=== PATIENT | female | born 1970 | race Caucasian/White ===

== ENCOUNTER 2020-12-11 21:05 | Inpatient (IN) | payer OTHER ==
[~2020-12-11] VITALS: Ht 170.2 cm; Wt 110.2 kg
[2020-12-11] MEDS ORDERED: ALBUTEROL SULF8.5 GM INH (21:11)
[2020-12-11] MEDS ORDERED: NORTRIPTYLINE H50 MG PO (21:11)
[2020-12-11] MEDS ORDERED: PERCOCET 10-321 EAC1 PO (21:12)
[2020-12-11] MEDS ORDERED: PROTONIX40 MG PO (21:12)
[2020-12-11] MEDS ORDERED: ALDACTONE100 MG PO (21:12)
[2020-12-11] MEDS ORDERED: ZOCOR40 MG PO (21:12)
[2020-12-11] MEDS ORDERED: IMITREX100 MG PO (21:13)
[2020-12-11] MEDS ORDERED: TOPAMAX50 MG PO (21:13)
[2020-12-11] MEDS ORDERED: FLUCONAZOLE150 MG PO (21:14)
[2020-12-11] MEDS ORDERED: NEURONTIN600 MG PO (21:14)
[2020-12-11] MEDS ORDERED: GLUCOPHAGE1000 MG PO (21:15)
[2020-12-11] MEDS ORDERED: XOPENEX 0.0.63 MG/3 UPD (21:15)
[2020-12-11] MEDS ORDERED: METHOCARBAMOL500 MG PO (21:15)
[2020-12-11] MEDS ORDERED: SYNTHROID125 MCG PO (21:15)
[2020-12-11] MEDS ORDERED: CELEBREX 100 M100 MG PO (21:16)
[2020-12-11] MEDS ORDERED: MS CONTIN30 MG PO (21:16)
[2020-12-11] MEDS ORDERED: DICLOFENAC SODI50 MG PO (21:17)
[2020-12-11] MEDS ORDERED: SOLIQUA (21:17)
[2020-12-11] MEDS ORDERED: CYMBALTA60 MG PO (21:17)
[2020-12-11] MEDS ORDERED: HYDROCHLOROTH12.5 M1 PO (21:18)
[2020-12-11 22:09] LABS: BASOPHILS 0.5 % (0-2); EOSINOPHILS 3.8 % (0-7); HEMATOCRIT 35.8 % (36.0-48.0); HEMOGLOBIN 11.5 g/dL (12-16); IMMATURE GRANULOCYTES 0.3 % (0-5); LYMPHOCYTE ABS# 1.69 10x3/uL (1.18-3.74); LYMPHOCYTES 15.1 % (15-50); MCH 30.6 pg (26.0-34.0); MCHC 32.1 g/dL (31.0-37.0); MCV 95.2 fL (80.0-100.0); MEAN PLATELET VOLUME 10.8 fL (7.4-10.4); MONOCYTES 11.2 % (2-11); NEUTROPHIL ABS# 7.73 10x3/uL (1.56-6.13); NEUTROPHILS 69.1 % (40-80); PLATELET COUNT 294 10x3/uL (130-400); RBC 3.76 10x6/uL (4.00-5.40); RDW 14.9 % (11.5-14.5); WBC 11.2 10x3/uL (4.8-10.8)
[2020-12-11 22:17] LABS: CALC OSMOLALITY 278 mosm/kg (275-300); CALCIUM 9.6 mg/dL (8.5-10.1); CARBON DIOXIDE 24.9 mmol/L (21.0-32.0); CHLORIDE - SERUM 93 mmol/L (98-107); CREATININE - SERUM 3.5 mg/dL (0.6-1.3); GLUCOSE 155 mg/dL (74-106); POTASSIUM - SERUM 3.4 mmol/L (3.5-5.1); SODIUM 133 mmol/L (136-145); UREA NITROGEN 41 mg/dL (7-18); eGFR NON AFRICAN AMERICAN 15 mL/min (90-120)
[2020-12-11 22:33] LABS: ALBUMIN 3.6 g/dL (3.4-5.0); ALKALINE PHOSPHATASE 128 U/L (30-120); ALT (SGPT) 56 U/L (10-68); BILIRUBIN - TOTAL 0.52 mg/dL (0.2-1.3); CKMB 6.1 U/L (0.0-3.6); CREATINE KINASE 239 UL (21-215); PRO BNP 217 pg/mL (0-125); PROTEIN - SERUM 7.9 g/dL (6.4-8.2); TROPONIN-I < 0.017 ng/mL (0.000-0.060)
[2020-12-12 00:05] LABS: BILIRUBIN NEGATIVE (NEGATIVE); KETONE NEGATIVE (NEGATIVE); NITRITE NEGATIVE (NEGATIVE); UROBILINOGEN NORMAL mg/dL (< 2)
[2020-12-12 00:06] VITALS: BP 110/75
[2020-12-12 00:06] LABS: BACTERIA MODERATE HPF (NONE SEEN); SQUAMOUS EPITHELIAL 0-5 HPF (0-4); WHITE CELLS - URINE 0-5 HPF (0-4)
[2020-12-12 00:11] LABS: UDS - AMPHET NEGATIVE QUAL (NEGATIVE); UDS - BARB NEGATIVE QUAL (NEGATIVE); UDS - BENZO NEGATIVE QUAL (NEGATIVE); UDS - COCAINE NEGATIVE QUAL (NEGATIVE); UDS - OPIATE POSITIVE QUAL (NEGATIVE); UDS - PCP NEGATIVE QUAL (NEGATIVE); UDS - THC NEGATIVE QUAL (NEGATIVE)
--- NOTE | 2020-12-12 01:45 | NUR ---
PT ARRIVED TO UNIT AT 0030 FROM ER. ALERT/ORIENTED/AMBULATORY. IVF INFUSING. IV ZOSYN COMPLETING. ACCOMPANIED BY HER . ADMISSION HISTORY/ASSESSMENT AND HOME MEDS REVIEWED. PROVIDED SANDWICH TRAY. PT DID TAKE HOME MEDS FOR TONIGHT,MINUS GLUCOPHAGE. ORIENT TO UNIT, USE OF CALL LIGHT AND SAFETY.
[2020-12-12 03:13] VITALS: BP 113/75; BMI 38.1
[2020-12-12 05:25] VITALS: BP 126/72
[2020-12-12 06:45] LABS: CKMB 4.9 U/L (0.0-3.6); CREATINE KINASE 207 UL (21-215)
[2020-12-12 06:55] LABS: TROPONIN-I < 0.017 ng/mL (0.000-0.060)
[2020-12-12 07:44] VITALS: BP 108/53
[2020-12-12 07:51] LABS: BASOPHILS 0.4 % (0-2); EOSINOPHILS 5.3 % (0-7); HEMATOCRIT 32.5 % (36.0-48.0); HEMOGLOBIN 10.6 g/dL (12-16); IMMATURE GRANULOCYTES 0.3 % (0-5); LYMPHOCYTE ABS# 1.22 10x3/uL (1.18-3.74); LYMPHOCYTES 16.9 % (15-50); MCH 30.5 pg (26.0-34.0); MCHC 32.6 g/dL (31.0-37.0); MCV 93.4 fL (80.0-100.0); MEAN PLATELET VOLUME 10.6 fL (7.4-10.4); MONOCYTES 12.5 % (2-11); NEUTROPHIL ABS# 4.66 10x3/uL (1.56-6.13); NEUTROPHILS 64.6 % (40-80); PLATELET COUNT 248 10x3/uL (130-400); RBC 3.48 10x6/uL (4.00-5.40); RDW 14.7 % (11.5-14.5)
[2020-12-12 07:54] LABS: WBC 7.2 10x3/uL (4.8-10.8)
[2020-12-12 07:57] LABS: ANION GAP 16.9 mmol/L (8-16); CALCIUM 9.3 mg/dL (8.5-10.1); CARBON DIOXIDE 24.7 mmol/L (21.0-32.0); MAGNESIUM - SERUM 1.6 mg/dL (1.8-2.4); POTASSIUM - SERUM 3.6 mmol/L (3.5-5.1); THYROID STIMULATING HORMONE 7.02 uIU/mL (0.36-3.74)
[2020-12-12 07:59] LABS: CREATININE - SERUM 2.6 mg/dL (0.6-1.3)
[2020-12-12 08:14] LABS: % SATURATION 18 % (15-55); IRON 61 ug/dl (35-150); TOTAL IRON BIND CAPACITY 333 ug/dl (260-445); UNSAT IRON BIND CAPACITY 272 ug/dl (150-375)
--- NOTE | 2020-12-12 08:36 | NUR ---
PT LYING IN BED ASLEEP. WOKE PT UP, GAVE MORNING MEDS. RESPIRATIONS EVEN NONLABORED, PAIN 3 ON THE NUMERIC PAIN SCALE. ALL NEEDS MET. CALL LIGHT IN REACH.
--- NOTE | 2020-12-12 10:55 | NUR ---
PT AND REVIEWED [facility]REC AT THIS TIME, AND ASKS FOR HOME MEDICATIONS TO BE RESTARTED. WILL PAGE MD FOR FURTHER ORDERS.
[2020-12-12 11:14] LABS: CKMB 3.4 U/L (0.0-3.6); CREATINE KINASE 206 UL (21-215); TROPONIN-I < 0.017 ng/mL (0.000-0.060)
[2020-12-12 13:23] VITALS: Ht 170.2 cm; Wt 110.2 kg
[2020-12-12 14:02] VITALS: BP 122/59
--- NOTE | 2020-12-12 15:22 | NUR ---
PT AND SPOUSE REPEATEDLY ASKS ABOUT MEDICATION BEING CONTINUED. NURSE WENT OVER NEW ORDERS WITH PT WITH WHAT MEDICATION WAS HELD AND WHAT WAS CONTINUED. PT STATES FRUSRTATION REGARDING NOT HAVING ALL HER PAIN MEDICATION CONTINUED. SPOKE WITH MJ AMES REGARDING THIS ALSO.
--- NOTE | 2020-12-12 15:33 | NUR ---
PRN MEDICATION GIVEN ALONG WITH EDUCATION REGARDING MEDICATIONS THAT HAVE BEEN CONTINUED PER REQUEST. PT AND SPOUSE BECOME MORE AGGRAVATED. NURSE TOLD PATIENT SHE IS ONLY ALLOWED TO GIVE MEDICATIONS PRESCRIBED BY THE MD AND INSTRUCTED PT TO NOT TAKE ANY HOME MEDICATIONS SHE HAS WITH HER.
--- NOTE | 2020-12-12 16:23 | NUR ---
PATIENT TO REFUSE THE SCD, HAS RECEIVED THE LOVENOX SHOT. EDUCATION ECXPLAINED TO PATIENT.
[2020-12-12 17:33] LABS: CKMB 2.5 U/L (0.0-3.6); CREATINE KINASE 151 UL (21-215); TROPONIN-I < 0.017 ng/mL (0.000-0.060)
--- NOTE | 2020-12-12 19:50 | NUR ---
ASSESSMENT COMPLETE, PT A&O. RESPERATIONS EVEN ON RA, IV TO LEFT AC WITH NS INFUSING AT 100 CC/HR, NO REDDNES OR SWELLING NOTED. PT IMMEDIATELY ASKED ME ABOUT ANOTHER PT, PT ASKED " WHAT DID THAT INMATE DO?" I INFORMED PT THAT I CANT DISCUSS OTHER PTS INFO WITH OTHER PTS. MRS RAY STATED THAT SHE IS NOT COMFORTABLE BEING NEXT TO INMATE AND THAT WE SHOULD KEEP PEOPLE WITH MENTAL ILLNESSES AWAY FROM ALL OF THE OTHER PEOPLE, AND THAT A NURSE I SHOULD HAVE A SAY IN WHERE TO PT THE INMATES. INFORMED PT THAT, THE DECISION ON WHERE TO PLACE PTS IS UP TO THE SUPERVISORS AND THAT SHE WILL HAVE TO INFORM THEM OF HER COMPLAINTS. PT THEN ASKED FOR NIGHT TIME MEDS, THIS NURSE INFORMED HER THAT MED PASS WILL BEGIN BETWEEN 8:30 AND 9:00 PM.
[2020-12-12 21:00] VITALS: BP 106/64
[2020-12-13] VITALS: BP 110/65
[2020-12-13 04:00] VITALS: BP 106/54
[2020-12-13 06:53] LABS: BASOPHILS 1.2 % (0-2); EOSINOPHILS 6.7 % (0-7); HEMATOCRIT 30.7 % (36.0-48.0); HEMOGLOBIN 10.2 g/dL (12-16); LYMPHOCYTES 24.6 % (15-50); MCH 30.8 pg (26.0-34.0); MCHC 33.1 g/dL (31.0-37.0); MCV 93.1 fL (80.0-100.0); MEAN PLATELET VOLUME 9.1 fL (7.4-10.4); MONOCYTES 13.6 % (2-11); NEUTROPHILS 53.9 % (40-80); PLATELET COUNT 244 10x3/uL (130-400); RBC 3.29 10x6/uL (4.00-5.40); RDW 15.1 % (11.5-14.5)
[2020-12-13 07:02] LABS: WBC 5.3 10x3/uL (4.8-10.8)
[2020-12-13 07:28] LABS: ALBUMIN 2.9 g/dL (3.4-5.0); ANION GAP 13.4 mmol/L (8-16); BILIRUBIN - TOTAL 0.23 mg/dL (0.2-1.3); CALCIUM 8.5 mg/dL (8.5-10.1); CARBON DIOXIDE 28.5 mmol/L (21.0-32.0); MAGNESIUM - SERUM 1.5 mg/dL (1.8-2.4); POTASSIUM - SERUM 3.9 mmol/L (3.5-5.1); PROTEIN - SERUM 6.1 g/dL (6.4-8.2)
[2020-12-13 07:31] LABS: CREATININE - SERUM 1.1 mg/dL (0.6-1.3); PHOSPHOROUS 2.6 mg/dL (2.5-4.9)
--- NOTE | 2020-12-13 08:36 | NUR ---
PT SITTING UP IN BED EATING BREAKFAST. ALL MORNING MEDS GIVEN. STATES PAIN IS A 5/10.ASSESSED AND LUNGS SOUND BETTER, STILL HAS CRACKLES ON INSPIRATION AND EXPIRATION. PT AWAKE AND ALERT. ANSWERS ALLQUESTIONS APPROP. NO NEEDS VOICED CLWR.
[2020-12-13] MEDS ORDERED: AZITHROMYCIN500 MG PO (10:22)
--- NOTE | 2020-12-13 11:30 | NUR ---
PT WILL BE D/C HOME TODAY, PT AND AWARE AND AGREE TO PLAN OF CARE. NO QUESTIONS VOICED.
--- NOTE | 2020-12-13 12:28 | NUR ---
GAVE DISCHARGE INSTRUCTIONS TO PT. PT ASKED FOR ALBUTAROL. CALLED IN PRESCRIPTION TO [facility] IN PER DR SESAY ORDER. IV D/C CATHETER INTACT. PT SIGNED DISCHARGE AND LEFT IN A WHEELCHAIR WITH . ALL BELONGINGS WITH PT. NO DISTRESS NOTED.
--- NOTE | 2020-12-13 15:10 | MORECARE ---
CASE MANAGEMENT DISCHARGE SUMMARY PATIENT: SHIRA RAY UNIT: [id number] ADM DATE: 12/11/20 AGE: 50 : 68 SEX: F ROOM/BED: [facility] AUTHOR: DEL,DOC PHYSICIAN: REFERRING PHYSICIAN: ENRICO DENNY MD DATE OF SERVICE: 12/13/20 Case Management Discharge Planning Summary DCP REVIEW SUMMARY ANTICIPATED D/C DATE: EXPECTED LOS : CASE STATUS: DCP Initiated INITIAL REVIEW: 12/12/2020 INITIAL REVIEWER: Sunni Barfield FINAL DISCHARGE DISPOSITION: : FINAL REVIEWER: FINAL REVIEW DATE: DCP Focus Questions & Answers QUESTION: ANSWER : PATIENT: SHIRA RAY ENCOUNTER: [id number] MEDICAL RECORD#: [id number] ADMISSION DATE: 12/11/2020 DISCHARGE DATE: 12/13/2020 ATTENDING MD: ENRICO VAZQUEZ : AGE: 50 MARITAL STATUS: M DC PLAN ID: [id number] FACILITY: [facility] PRINTED ON: 12/13/20 15:10 CT All edits/amendments must be made on the electronic document DICTATION DATE: 12/13/20 150 INSOLE TAPER: DANDY 12/13/20 1509 RPT#: [id number] DC DATE:12/13/20 STATUS: DIS IN [facility] [address] [place] [address] END OF REPORT
--- NOTE | 2020-12-13 15:48 | MORECARE ---
CASE MANAGEMENT DISCHARGE SUMMARY PATIENT: SHIRA RAY UNIT: [id number] ADM DATE: 12/11/20 AGE: 50 : 68 SEX: F ROOM/BED: D.1017 AUTHOR: DELDOC PHYSICIAN: REFERRING PHYSICIAN: ENRICO DENNY MD DATE OF SERVICE: 12/13/20 Case Management Discharge Planning Summary COMMENTS ENTERED DATE: 12/13/20 15:39 CT COMMENT TYPE: Discharge Planning REVIEWER: Sunni Barfield CM MET WITH PATIENT TO COMPLETE DCP AND OFFER AVAILABILITY FOR ANY NEEDED SERVICES. PATIENT STATES THAT SHE LIVES INDEPENDENTLY AT HOME WITH HER SPOUSE HALLEY RAY [phone]. SPOUSE PRESENT AT TIME OF DCP AND STATES THAT THEY ARE HERE ON VACATION AND PLAN TO RETURN TO [place] FOR NEXT TWO WEEKS BEFORE GOING BACK HOME TO [place]. PT HAS TRANSPORTATION FROM HOSPITAL AND PT IS ABLE TO OBTAIN MEDICATIONS. PATIENT DENIES DME NEED AND HAS OWN CPAP MACHINE FROM HOME WITH HER. PT FEELS SHE CAN SAFELY DISCHARGE AND RETURN TO VACATION DESIGNATION HERE IN [place]. PT STATES THAT SHE WILL USE [facility] FOR ANY NEEDS WHILE IN [place]. DCP REVIEW SUMMARY ANTICIPATED D/C DATE: EXPECTED LOS : CASE STATUS: DCP Initiated INITIAL REVIEW: 12/12/2020 INITIAL REVIEWER: Sunni Barfield FINAL DISCHARGE DISPOSITION: : FINAL REVIEWER: FINAL REVIEW DATE: DCP Focus Questions & Answers DCP Screen QUESTION: ANSWER High Risk Factors: : None Walking limitation: Patient stated self rated walking limitation present? : No Age: : 45 - 63 Prior living environment: : Lives with others Disability ranking: : Grade 1: No significant disability DCP Evaluation QUESTION: ANSWER Patient and/or caregiver agree upon recommended discharge plan? : Yes Family / Caregiver's ability to cope with chronic illness: : a. Adequate (ability to meet patient's medical needs, ensures patient attends medical appts.) Patient's current cognitive status: : *Oriented to person, place, situation, time and present Patient's ability to cope with chronic illness : d. No chronic illness Patient gives permission to discuss discharge plans with: (name, relationship and number) : HALLEY RAY Does the patient have the ability to pay for or attain post discharge needs / services? : Yes Functional screen assessment: : Basic needs can adequately be met by self Family / Caregiver's ability to cope with chronic illness: : a. Adequate (ability to meet patient's medical needs, ensures patient attends medical appts.) Physical Status: : Independent with ADL's Equipment needed for post hospitalization: : None Is there a likelihood that the patient will require additional services to return to the preadmission environment? : No Living Arrangements: : Home with others Results of this evaluation have been discussed with: : Spouse Results of this evaluation have been discussed with: : Patient Patient with capacity for self-care or can be cared for in same environment as prior to hospitalization? 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 : N/A Planned post hospital services covered by insurance plan? : N/A Does Patient have transportation to get home and to follow-up medical appointments when discharged from the hospital? : Yes Would patient like to participate in any Care Coordination programs (if applicable): : Not applicable Does the patient have electricity at home? : Yes Does the patient have running water in their house? : Yes Equipment in use: : CPAP Mental health screen: : No mental health history Psychosocial status: : Independent adult (18-64) Abuse/Neglect: : None Resources / Services in place: : None DCP Re-evaluation QUESTION: ANSWER Would patient like to participate in any Care Coordination programs (if applicable): : Not applicable PATIENT: SHIRA RAY ENCOUNTER: [id number] MEDICAL RECORD#: [id number] ADMISSION DATE: 12/11/2020 DISCHARGE DATE: 12/13/2020 ATTENDING MD: ENRICO VAZQUEZ : AGE: 50 MARITAL STATUS: M DC PLAN ID: [id number] FACILITY: [facility] PRINTED ON: 12/13/20 15:48 CT All edits/amendments must be made on the electronic document DICTATION DATE: 12/13/20 1548 LINE CONSTRUCTION ENGINEER: DANDY 12/13/20 1548 RPT#: [id number] DC DATE:12/13/20 STATUS: DIS IN [facility] [address] [place] [address] END OF REPORT
--- NOTE | 2020-12-15 19:37 | MORECARE ---
CASE MANAGEMENT DISCHARGE SUMMARY PATIENT: SHIRA RAY UNIT: [id number] ADM DATE: 12/11/20 AGE: 50 : 68 SEX: F ROOM/BED: D.2397 AUTHOR: DELDOC PHYSICIAN: REFERRING PHYSICIAN: ENRICO DENNY MD DATE OF SERVICE: 12/15/20 Case Management Discharge Planning Summary COMMENTS ENTERED DATE: 12/13/20 15:39 CT COMMENT TYPE: Discharge Planning REVIEWER: Sunni Barfield CM MET WITH PATIENT TO COMPLETE DCP AND OFFER AVAILABILITY FOR ANY NEEDED SERVICES. PATIENT STATES THAT SHE LIVES INDEPENDENTLY AT HOME WITH HER SPOUSE HALLEY RAY [phone]. SPOUSE PRESENT AT TIME OF DCP AND STATES THAT THEY ARE HERE ON VACATION AND PLAN TO RETURN TO [place] FOR NEXT TWO WEEKS BEFORE GOING BACK HOME TO [place]. PT HAS TRANSPORTATION FROM HOSPITAL AND PT IS ABLE TO OBTAIN MEDICATIONS. PATIENT DENIES DME NEED AND HAS OWN CPAP MACHINE FROM HOME WITH HER. PT FEELS SHE CAN SAFELY DISCHARGE AND RETURN TO VACATION DESIGNATION HERE IN [place]. PT STATES THAT SHE WILL USE [facility] FOR ANY NEEDS WHILE IN [place]. DCP REVIEW SUMMARY ANTICIPATED D/C DATE: EXPECTED LOS : CASE STATUS: DCP Initiated INITIAL REVIEW: 12/12/2020 INITIAL REVIEWER: Sunni Barfield FINAL DISCHARGE DISPOSITION: : FINAL REVIEWER: FINAL REVIEW DATE: DCP Focus Questions & Answers DCP Screen QUESTION: ANSWER High Risk Factors: : None Walking limitation: Patient stated self rated walking limitation present? : No Age: : 45 - 64 Prior living environment: : Lives with others Disability ranking: : Grade 1: No significant disability DCP Evaluation QUESTION: ANSWER Patient and/or caregiver agree upon recommended discharge plan? : Yes Family / Caregiver's ability to cope with chronic illness: : a. Adequate (ability to meet patient's medical needs, ensures patient attends medical appts.) Patient's current cognitive status: : *Oriented to person, place, situation, time and present Patient's ability to cope with chronic illness : d. No chronic illness Patient gives permission to discuss discharge plans with: (name, relationship and number) : HALLEY RAY Does the patient have the ability to pay for or attain post discharge needs / services? : Yes Functional screen assessment: : Basic needs can adequately be met by self Family / Caregiver's ability to cope with chronic illness: : a. Adequate (ability to meet patient's medical needs, ensures patient attends medical appts.) Physical Status: : Independent with ADL's Equipment needed for post hospitalization: : None Is there a likelihood that the patient will require additional services to return to the preadmission environment? : No Living Arrangements: : Home with others Results of this evaluation have been discussed with: : Spouse Results of this evaluation have been discussed with: : Patient Patient with capacity for self-care or can be cared for in same environment as prior to hospitalization? : Yes Baseline cognitive status: : *Oriented to person, place, situation, time and present Physical environment modification needed / anticipated for discharge: : No Medication Management: : Patient states can read and understand medication labels Medication Management: : Patient states they do have transportation to order picker/assembler medications Medication Management: : Patient states can afford medications Planned post hospital services available for patient? : N/A Planned post hospital services covered by insurance plan? : N/A Does Patient have transportation to get home and to follow-up medical appointments when discharged from the hospital? : Yes Would patient like to participate in any Care Coordination programs (if applicable): : Not applicable Does the patient have electricity at home? : Yes Does the patient have running water in their house? : Yes Equipment in use: : CPAP Mental health screen: : No mental health history Psychosocial status: : Independent adult (18-64) Abuse/Neglect: : None Resources / Services in place: : None DCP Re-evaluation QUESTION: ANSWER Would patient like to participate in any Care Coordination programs (if applicable): : Not applicable PATIENT: SHIRA RAY ENCOUNTER: [id number] MEDICAL RECORD#: [id number] ADMISSION DATE: 12/11/2020 DISCHARGE DATE: 12/13/2020 ATTENDING MD: ENRICO VAZQUEZ : AGE: 50 MARITAL STATUS: M DC PLAN ID: [id number] FACILITY: [facility] PRINTED ON: 12/15/20 19:37 CT All edits/amendments must be made on the electronic document DICTATION DATE: 12/15/201936 REAL TIME ANALYST: DANDY 12/15/201936 RPT#: [id number] DC DATE:12/13/20 STATUS: DIS IN [facility] [address] [place] [address] END OF REPORT
== END 2020-12-13 12:38 | disposition home or self-care (01) | DRG 682 ==
LOC: D.ER 21:05 → D.M2 23:56
PROVIDERS: Family Medicine; ADMIT Emergency Medicine; ATTEND Emergency Medicine
DX: N17.9 Acute kidney failure, unspecified (principal); G93.41 Metabolic encephalopathy; E87.1 Hypo-osmolality and hyponatremia; D64.9 Anemia, unspecified; E87.6 Hypokalemia; W19.XXXA Unspecified fall, initial encounter; E78.5 Hyperlipidemia, unspecified; E11.9 Type 2 diabetes mellitus without complications; K21.9 Gastro-esophageal reflux disease without esophagitis; F41.8 Other specified anxiety disorders; F43.10 Post-traumatic stress disorder, unspecified; E03.9 Hypothyroidism, unspecified; G47.33 Obstructive sleep apnea (adult) (pediatric); J20.9 Acute bronchitis, unspecified; F13.10 Sedative, hypnotic or anxiolytic abuse, uncomplicated